=== PATIENT | male | born 1940 | race Caucasian/White ===

== ENCOUNTER 2020-05-19 14:51 | Observation (INO) | payer MEDICARE, OTHER, SELFPAY ==
[2020-05-19] VITALS (27 sets, daily range): BP systolic 112–171; BP diastolic 68–87; PULSE 75–102; RESP 12–24; TEMP 36.7–37; O2SAT 94–100
--- NOTE | ~2020-05-19 | XR_ITS ---
XR chest 1V portable DATE: 05/19/2020 17:17 INDICATION: Leukocytosis TECHNIQUE: Portable AP chest on 05/19/2020 at 1719 hours COMPARISON: None FINDINGS: Normal heart size. There is aortic calcification and tortuosity. No pulmonary infiltrate or consolidation, pleural effusion or pulmonary vascular congestion or pneumothorax. There is dextroscoliosis and degenerative spurring of the thoracic spine. Diffuse osteopenia. IMPRESSION: No active cardiopulmonary disease Aortic atherosclerosis Reviewed, dictated and finalized at location A.
--- NOTE | 2020-05-19 15:47 | ECG_ITS ---
Measurements Intervals [place] Rate: 82 P: 47 FL: 175 QRS: 52 QRSD: 102 T: 60 QT: 361 QTc: 424 Interpretive Statements SINUS RHYTHM WITH SINUS ARRHYTHMIA NORMAL ECG Electronically Signed On 05-20-2020 9:12:50 CDT by Brien Whitt D.O.
--- NOTE | 2020-05-19 15:51 | ED.PSYCH ---
HPI - Psych General Chief Complaint: Psychiatric Symptoms Stated Complaint: SI - cut wrists Time Seen by Provider: 05/19/20 15:34 Source: patient Mode of arrival: EMS Limitations: no limitations History of Present Illness HPI Narrative: This is a 79 year old male with history of depression and hypertension who presents for evaluation of depression and bilateral wrist lacerations. Patient states he has been confused and forgetful for a few years. He reports a family history of alzheimer's dementia and he states he does not want his to have take care of him. He has not had an official diagnosis of dementia. Today he states he was just having alot of thoughts about his forgetfulness and his so he cut both his wrist. He also took about 10 of his lisinopril around 3 hours ago. He denies any acute problems. He attempted suicide 7 years old but he does not take antidepressants. He states at that time he was a heavy alcohol drinker, but he denies alcohol use anymore. Related Data Home Medications Medication Instructions Recorded Confirmed cholecalciferol (vitamin D3) 25 1,000 unit PO DAILY 02/11/19 mcg (1,000 unit) capsule multivitamin 1 tablet PO DAILY 02/11/19 ICaps AREDS2 05/19/20 ascorbate calcium (vitamin C) 1,000 mg PO DAILY 05/19/20 Allergies Allergy/AdvReac Type Severity Reaction Status Date / Time No Known Allergies Allergy Verified 05/19/20 16:12 Review of Systems Review of Systems: All systems reviewed & are unremarkable except as noted in HPI and below PMFSH Past Medical History Medical History (Updated 05/19/20 @ 17:42 by Ellen Ayala MD) Cataract Dupuytren contracture Self-inflicted laceration of wrist Surgical History Surgical History H/O hand surgery H/O vasectomy Family History Family History Father Family history of Alzheimer's disease Patient's father is , Onset Age: 68 Mother Family history of Alzheimer's disease Sibling Family history of Alzheimer's disease Malignant neoplasm of prostate Family history of lymphoma Family history of malignant neoplasm of brain, Onset Age: 56 Family history of malignant neoplasm of urinary bladder, Onset Age: 76 Social History Social History (Reviewed 02/17/20 @ 13:29 by Alisson Chaney [facility]) Smoking status: Former smoker Alcohol intake: current Gender identity (if verbalized by the patient): Male Exam Const: General: no acute distress and alert Other: oriented to person, place, month, day, unable to state year Eyes: Pupils: Equal, round and reactive pupils present EOM: EOMs intact bilaterally Chest: Chest palpation & inspection: normal inspection of the chest Resp: Effort & Inspection: normal respiratory effort and no retractions Auscultation: clear to auscultation bilaterally Cardio: Rate: regular rate Rhythm: regular rhythm Heart sounds: no murmurs GI: GI Palp: Yes Soft to palpation, No Tenderness to palpation present (GI) and No Guarding due to palpation present (GI) Auscultation: normal bowel sounds Skin: General skin exam: normal color Neuro: General: patient oriented x3, moves all extremities and CN's II-XI intact bilaterally Extrem: Other: right wrist with 2 irregular laceration volar wrist, bleeding controlled; right had with 5th/4th finger flexion contractures; left wrist with 2 laceration - 3 cm and 2.5 cm volar laceration superficial bleeding controlled. Psych: Affect: Sad affect present Thought content: Yes Suicidality present and Yes Depressive thoughts present Course Reevaluation(s) Reevaluation #1: I have notified patient and his that he will be admitted to hospital for monitoring. Date: 05/19/20 Time: 17:39 Consultations Consultation #1: I discussed case with Cristina Marquez who accepts patient to hospitalist se
[2020-05-19] MEDS: TETANUS,DIPHTHERIA,AC PERTUSSIS ADULT (0.5 ML) BOOSTRIX IM (16:09)
[2020-05-19 16:18] LABS: Hematocrit 40.9 % (42.0-52.0); Hemoglobin 13.9 g/dL (14.0-18.0); Mean Corpuscular Hemoglobin 32.1 pg (26-34); Mean Corpuscular Volume 94.5 fl (80-100); Mean Platelet Volume 9.7 fl (7.4-10.4); Platelet Count Result 233 k/mm3 (150-375); Red Blood Count 4.33 M/mm3 (4.6-6.20); Red Cell Distribution Width 12.7 % (11.5-14.5); White Blood Count 16.2 K/mm3 (4.5-10.0)
[2020-05-19 16:25] LABS: Amphetamine Screen Urine Negative (Negative); Barbiturate Screen Urine Negative (Negative); Benzodiazepines Screen Urine Negative (Negative); Cannabinoid Screen Urine Negative (Negative); Cocaine Screen Urine Negative (Negative); Methadone Screen Urine Negative (Negative); Opiate Screen Urine Negative (Negative); Phencyclidine Screen Urine Negative (Negative)
[2020-05-19 16:26] LABS: Add Urine Microscopic? YES; Appearance Urine Cloudy (Clear); Bilirubin Urine Negative (Negative); Blood Urine Negative (Negative); Color Urine Yellow (Yellow); Glucose Urine UA 1+ mg/dL (Negative); Ketones Urine Trace mg/dL (Negative); Leukocyte Esterase Ur Negative LEU/UL (Negative); Mucus Urine Rare /lpf; Nitrate Urine Negative (Negative); Protein Urine 1+ mg/dL (Negative); Specific Grav Ur 1.019 (1.001-1.035); Squamous Epithelial Cell Urine Rare /hpf (Few); Urobilinogen Urine Negative mg/dL (<2.0); WBC Urine 0-3 /hpf
[2020-05-19 16:30] LABS: Ethanol < 10 mg/dL (<10)
[2020-05-19 16:31] LABS: Alanine Aminotransferase 29 U/L (4-50); Albumin Level 3.8 g/dL (3.5-5.1); Alkaline Phosphatase 58 U/L (38-126); Anion Gap 7 mmol/L (8-16); Aspartate Amino Transferase 34 U/L (17-59); Bilirubin,Total 0.5 mg/dL (0.2-1.3); Blood Urea Nitrogen 23 mg/dL (9-20); Calcium 8.5 mg/dL (8.4-10.2); Carbon Dioxide 25 mmol/L (22-30); Chloride 103 mmol/L (98-107); Estimated CRCL calculation 66 ml/min; Estimated Glomerular Filt Rate > 60; Glucose 142 mg/dL (75-110); Potassium 4.2 mmol/L (3.4-5.0); Sodium 135 mmol/L (137-145)
--- NOTE | 2020-05-19 16:34 | PC.NURSE ---
Addendum entered by Carmen Laguna RN 05/19/20 16:48: dea from poison control also states pt should be observed for approx 48 hrs Original Note: spoke with dea, pharmacist at poison control: pt can tolerate up to 240 mg/24 tablets. peak response is approx 6-8 hrs. watch for hypotension, reflex tachycardia, dizziness and lethargy. dea recommends salycilate and acetaminophen levels as well as frequent vitals and iv fluids. dea will fax treatment plan to [facility]
[2020-05-19 16:43] LABS: Band Neutrophils Percent 5 % (0-6); Lymphocytes Absolute Manual 0.48 K/mm3 (1.1-4.5); Neutrophils Absolute Manual 15.71 K/mm3 (1.3-6.7); Neutrophils Percent Manual 92 % (46-73); Total Cells Counted 100
[2020-05-19 16:44] LABS: Platelet Estimate Adequate (Adequate)
[2020-05-19 17:01] LABS: Acetaminophen < 10 ug/mL (10-30); Salicylate < 1.0 mg/dL (2-20)
[2020-05-19] MEDS: LIDOCAINE HCL 1% LOCAL INJ 20 ML VIAL (18:10)
--- NOTE | 2020-05-19 18:43 | PC.NURSE ---
updated dea with poison control
--- NOTE | 2020-05-19 18:58 | PC.NURSE ---
phone report to nurse alie. will transfer to icu after shift change
--- NOTE | 2020-05-19 19:46 | PM.IMHP ---
H&P: HPI History of Present Illness Date/Time: 05/19/20 19:46 Chief Complaint: Suicide attempt Narrative: This is a pleasant 79-year-old male with known history of chronic hypertension, hyperlipidemia, and previous suicide attempt who presented to the hospital [facility] after intentionally cutting his wrists in an attempt to take his life. The patient believes that he is slowly developing Alzheimer's dementia and is very concerned because he does not want to be a burden on his . Today when his went to the hair salon he went into the garage and took a box stamper and intentionally cut both of his wrists. About an hour later his found him in the garage and he was still loose sitting consciousness. The patient denies any other attempt to take his life although he reported to ER provider that he did also consume 10 tablets of his lisinopril 10 mg about 3 hours prior to coming to the emergency room. On my encounter with the patient he is laying comfortably in bed in no acute distress and his vital signs are stable. He denies any headache, fevers, chills, chest pain, palpitations, shortness of breath, sleepiness, abdominal pain, nausea, vomiting, dysuria, hematuria, diarrhea, rectal bleeding, or focal neurological deficits. The patient was evaluated emergency room this evening and had both of his wrists sutured by ER provider. Routine labs were obtained which were virtually unremarkable. [employer] has been consulted. Review of Systems Review of Systems: All systems reviewed & are unremarkable except as noted in HPI and below PMFSH Past Medical History Medical History (Updated 05/19/20 @ 19:56 by Tavo Bear MD) Cataract Dupuytren contracture Self-inflicted laceration of wrist Surgical History Surgical History H/O hand surgery H/O vasectomy Family History Family History Father Family history of Alzheimer's disease Patient's father is , Onset Age: 68 Mother Family history of Alzheimer's disease Sibling Family history of Alzheimer's disease Malignant neoplasm of prostate Family history of lymphoma Family history of malignant neoplasm of brain, Onset Age: 56 Family history of malignant neoplasm of urinary bladder, Onset Age: 76 Social History Social History Smoking packs per day: 3 Smoking cigarettes per day: 60.0 Smoking status: Former smoker Alcohol intake: former Substance use: never Gender identity (if verbalized by the patient): Male Spiritual care concerns: No Meds Home Medications and Allergies Home Medications Medication Instructions Recorded Confirmed Type cholecalciferol (vitamin D3) 25 1,000 unit PO DAILY 02/11/19 05/19/20 History mcg (1,000 unit) capsule multivitamin 1 tablet PO DAILY 02/11/19 05/19/20 History diclofenac sodium 75 mg 75 mg PO BID #180 tablet 01/14/20 05/19/20 Rx tablet,delayed release lisinopril 10 mg tablet 10 mg PO DAILY #90 tablet 01/14/20 05/19/20 Rx simvastatin 20 mg tablet 20 mg PO DAILY #90 tablet 01/14/20 05/19/20 Rx ICaps AREDS2 1 cap PO DAILY 05/19/20 05/19/20 History ascorbate calcium (vitamin C) 1,000 mg PO DAILY 05/19/20 05/19/20 History Allergies Allergy/AdvReac Type Severity Reaction Status Date / Time No Known Allergies Allergy Verified 05/19/20 16:12 Vital Signs Vital Signs - 24 hr 05/19/20 14:53 05/19/20 15:58 05/19/20 16:02 Temperature 36.7 C Pulse Rate 92 83 80 Respiratory Rate 21 H 17 15 Blood Pressure 171/80 H 134/76 Pulse Oximetry 99 98 98 05/19/20 16:15 05/19/20 16:16 05/19/20 16:30 Temperature Pulse Rate 80 81 78 Respiratory Rate 18 15 15 Blood Pressure 123/74 131/79 Pulse Oximetry 96 98 96 05/19/20 16:31 05/19/20 16:47 05/19/20 17:00 Temperature Pulse Rate 77 79 79 Respiratory Ra
--- NOTE | 2020-05-19 21:09 | PC.NURSE ---
This patient, Vaibhav Finney, was admitted to Intensive Care Unit-6. Patient/family oriented to hospital policies and general routines including ID bracelet, bed and alarms, visiting hours, pain management, procedures, bathroom and other care routines, personal items, smoking policy, room service/diet, and visiting hours. Information on how to activate the Rapid Response Team has been discussed. Patient/Family are encouraged to report perceived risks to care and to ask questions if they do not understand what they are told or what they should do.
[2020-05-20] VITALS (8 sets, daily range): BP systolic 101–141; BP diastolic 56–71; PULSE 69–86; RESP 10–18; TEMP 36.4–36.9; O2SAT 94–98
--- NOTE | 2020-05-20 08:49 | WPDCNINT ---
Assessment and Plan Assessment and plan (1) Suicide attempt by cutting of wrist: Code(s): X78.9XXA - Intentional self-harm by unspecified sharp object, initial encounter Status: Acute Assessment and Plan: Patient with self-inflicted wounds to bilateral wrists in attempt to commit suicide. -bilateral wrist lacerations were sutured in the ER. Patient did receive DTaP in the ER -currently denies suicidal or homicidal ideation or intent -continue suicide precaution -bedside sitter -will have care coordination and crisis management evaluate the patient (2) Suicide attempt by drug ingestion: Qualifiers: Encounter type: initial encounter Qualified Code(s): T50.902A - Poisoning by unspecified drugs, medicaments and biological substances, intentional self-harm, initial encounter Code(s): T50.902A - Poisoning by unspecified drugs, medicaments and biological substances, intentional self-harm, initial encounter Status: Acute Assessment and Plan: Patient also ingested lisinopril 10 mg x 10 pills in an attempt to commit suicide -patient's blood pressures have been stable, poison Control was notified in the ER -blood pressures have been stable patient otherwise hemodynamically stable -currently medical stable for evaluation by crisis management and care coordination (3) Essential (primary) hypertension: Code(s): I10 - Essential (primary) hypertension Status: Acute Assessment and Plan: History of essential hypertension, will hold all antihypertensives for now Additional Plan Discussed with patient updated with his condition and plan of care. I did discuss with him regarding care coordination and crisis management evaluation later today Code status: Full code Critical care time spent: 41 minutes This dictation may have been done utilizing a voice recognition system. Attempts have been made to correct errors. However, there may be uncorrected grammatical, spelling, and recognition errors present. Due to a high probability of clinically significant, life threatening deterioration, the patient required my highest level of preparedness to intervene emergently and I personally spent this critical care time directly and personally managing the patient. This critical care time included obtaining a history; examining the patient; pulse oximetry; ordering and review of studies; arranging urgent treatment with development of a management plan; evaluation of patient's response to treatment; frequent reassessment; and discussions with other providers. It was exclusive of separately billable procedures and treating other patients and teaching time. Please see Assessment and Plan section and the rest of the note for further information on patient assessment and treatment Music Therapy Teacher Consult Note Consult date: 05/20/20 Time Seen: 07:09 Reason for consult: Suicide attempt/behavior, overdose with lisinopril HPI: Vaibhav Finney is a 79 year old male with significant past medical history of chronic hypertension, hyperlipidemia suicide attempt to presented the hospital on 05/19/2020 after intentionally guarding is resistant attempt to take his life. Patient also overdosed on lisinopril 10 mg x 10 pills. According the records he was having a lot of thoughts about his forgetfulness and possible dementia. He was also worried for his and did not want to be a burden on her. When his left the house the day of admission he went to the arise, to cut a spinner box and intentionally cut both his wrists. The laceration on both wrists were superficial and was sutured in the ER. Patient's blood pressures have been stable since admission, was transferred to the ICU for further management Patient seen and examined this morning. Pleasant gentleman, states he probably made a huge mistake. He is not suicidal or homicidal at this time. Patient is otherwise able to answer questions appropriately and follows simple comm
--- NOTE | 2020-05-20 10:23 | PC.NURSE ---
Spoke with Poison Control. is closed at this time. Will continue to monitor.
--- NOTE | 2020-05-20 11:23 | PM.IMPN ---
Progress Note: A&P Assessment and Plan (1) Suicide attempt by cutting of wrist: Code(s): X78.9XXA - Intentional self-harm by unspecified sharp object, initial encounter Status: Acute Assessment and Plan: Patient has been discharged from poison Control Patient is medically stable to be evaluated by psych The patient on suicidal precautions Seated at bedside one-to-one (2) Suicide attempt by drug ingestion: Qualifiers: Encounter type: initial encounter Qualified Code(s): T50.902A - Poisoning by unspecified drugs, medicaments and biological substances, intentional self-harm, initial encounter Code(s): T50.902A - Poisoning by unspecified drugs, medicaments and biological substances, intentional self-harm, initial encounter Status: Acute Assessment and Plan: Stable TOOK 10 MG PILLS OF LISINOPRIL Blood pressure stable (3) Laceration of wrist, right: Qualifiers: Encounter type: initial encounter Qualified Code(s): S61.511A - Laceration without foreign body of right wrist, initial encounter Code(s): S61.511A - Laceration without foreign body of right wrist, initial encounter Status: Acute Assessment and Plan: Status post suture LOCAL CARE (4) Laceration of wrist, left: Qualifiers: Encounter type: initial encounter Qualified Code(s): S61.512A - Laceration without foreign body of left wrist, initial encounter Code(s): S61.512A - Laceration without foreign body of left wrist, initial encounter Status: Acute Assessment and Plan: A status post sutures Local care (5) Chronic kidney disease, stage 3 (moderate): Qualifiers: Chronic kidney disease stage 3 subtype: unspecified whether 3a or 3b Qualified Code(s): N18.30 - Chronic kidney disease, stage 3 unspecified Code(s): N18.3 - Chronic kidney disease, stage 3 (moderate) Status: Chronic Assessment and Plan: BUN AND CREATININE AT PATIENT'S BASELINE (6) Essential (primary) hypertension: Code(s): I10 - Essential (primary) hypertension Status: Acute Assessment and Plan: Is stable would resume meds as needed (7) Major depressive disorder, single episode, unspecified: Qualifiers: Active/Remission status: remission status unspecified Qualified Code(s): F32.9 - Major depressive disorder, single episode, unspecified Code(s): F32.9 - Major depressive disorder, single episode, unspecified Status: Acute Assessment and Plan: Awaiting evaluation by psych Supportive care Resume home meds Subjective Date/time seen: 05/20/20 11:23 I feel OK. Review of Systems Review of Systems: Narrative: Patient is here after he took 10 mg Lisinopril tabs and cut both of his wrists in an attempt to take his own life, expresses concerns about having Dementia like his father did and what his mother went thru by having to take care of him does not want his to go thru that as well, has been thinking about this lately. Constitutional: Comments: No rigors, no chills, no fevers. Cardiovascular: Comments: No chest pain ,no PND no orthopnea, no leg swelling Respiratory: Comments: No cough or sputum production no shortness of breath Gastrointestinal: Comments: No nausea, no vomiting, no diarrhea, no abdominal pain. Musculoskeletal: Comments: No muscular weakness, no muscle pain, no joint pain Integumentary/Breasts: Comments: No rashes Neurologic: Comments: No sensorimotor deficit Exam Narrative: Exam Narrative: Healthy appearing ,comfortable, in no acute distress, well developed. Well nourished. Oriented x3 Const: Nutritional Appearance: well nourished HENMT: Head: normal to inspection, normocephalic and atraumatic Ears: hearing grossly normal bilaterally General nose exam: Normal external nose present Face and sinus: normal facial exam Eyes: General: appearance normal, both eyes and all related struct
[2020-05-20 17:14] LABS: SARS-CoV-2 RNA PCR Negative
--- NOTE | 2020-05-24 16:02 | PM.DS ---
DS: Admitting Diagnosis Admitting Diagnosis Admitting Diagnosis: - suicidal attempt -bilateral wrist laceration -OD on lisinopril -depression -hypertension DS: Discharge Diagnosis Discharge Diagnosis (1) Suicidal ideation: Code(s): R45.851 - Suicidal ideations Status: Acute Assessment and Plan: transferred to outside psych facility patient denies any current thoughts of harming self (2) Suicide attempt by cutting of wrist: Code(s): X78.9XXA - Intentional self-harm by unspecified sharp object, initial encounter Status: Acute Assessment and Plan: local care (3) Suicide attempt by drug ingestion: Qualifiers: Encounter type: initial encounter Qualified Code(s): T50.902A - Poisoning by unspecified drugs, medicaments and biological substances, intentional self-harm, initial encounter Code(s): T50.902A - Poisoning by unspecified drugs, medicaments and biological substances, intentional self-harm, initial encounter Status: Acute Assessment and Plan: monitored overnight (4) Laceration of wrist, right: Qualifiers: Encounter type: initial encounter Qualified Code(s): S61.511A - Laceration without foreign body of right wrist, initial encounter Code(s): S61.511A - Laceration without foreign body of right wrist, initial encounter Status: Acute Assessment and Plan: local care (5) Laceration of wrist, left: Qualifiers: Encounter type: initial encounter Qualified Code(s): S61.512A - Laceration without foreign body of left wrist, initial encounter Code(s): S61.512A - Laceration without foreign body of left wrist, initial encounter Status: Acute Assessment and Plan: local care (6) Benign essential hypertension: Code(s): I10 - Essential (primary) hypertension Status: Chronic Assessment and Plan: stable follow-up in a patient is a (7) Chronic kidney disease, stage 3 (moderate): Qualifiers: Chronic kidney disease stage 3 subtype: unspecified whether 3a or 3b Qualified Code(s): N18.30 - Chronic kidney disease, stage 3 unspecified Code(s): N18.3 - Chronic kidney disease, stage 3 (moderate) Status: Chronic Assessment and Plan: follow-up in outpatient setting continue to monitor (8) Essential (primary) hypertension: Code(s): I10 - Essential (primary) hypertension Status: Acute Assessment and Plan: well controlled continue home meds (9) Major depressive disorder, single episode, unspecified: Qualifiers: Active/Remission status: remission status unspecified Qualified Code(s): F32.9 - Major depressive disorder, single episode, unspecified Code(s): F32.9 - Major depressive disorder, single episode, unspecified Status: Acute Assessment and Plan: admitted to outside psych facility DS: Summary Hospital Course Reason for hospitalization: Suicidal attempt. Hospital Course: this is a 79-year-old male with past medical history significant for depression hypertension on but impaired glucose tolerance patient was brought to the hospital after he attempted suicide by cutting his wrists and taken 10 pills of his own lisinopril, he was placed on suicidal precautions, stated at bedside one-to-one monitoring, he was cleared by poison control in the morning and he was evaluated by crisis intervention and he was transferred to outside psych facility he remained in a stable medical condition on his recent wounds were sutured in the emergency room Status at Discharge Cognitive/behavioral status at discharge: AOX3 Functional status at discharge: independent ambulation Overall status at discharge: patient is progressing back to baseline Time Spent with Patient Time attestation: Total time spent providing and/or coordinating discharge services: Exam Const: General: comfortable, no acute distress, wel
== END 2020-05-20 19:28 ==
LOC: ANHED 17:42 → ANHICU 05-20 12:05
PROVIDERS: Admitting Provider Family Medicine; Emergency Provider General Practice; PCP Family Medicine; Visit Provider Internal Medicine
DX: T46.4X2A Poisoning by angiotensin-converting-enzyme inhibitors, intentional self-harm, initial encounter (principal); S61.512A Laceration without foreign body of left wrist, initial encounter; S61.511A Laceration without foreign body of right wrist, initial encounter; X78.9XXA Intentional self-harm by unspecified sharp object, initial encounter; R45.851 Suicidal ideations; I12.9 Hypertensive chronic kidney disease with stage 1 through stage 4 chronic kidney disease, or unspecified chronic kidney disease; N18.30 Chronic kidney disease, stage 3 unspecified; E78.5 Hyperlipidemia, unspecified; F32.9 Major depressive disorder, single episode, unspecified; Z87.891 Personal history of nicotine dependence; Z20.822 Contact with and (suspected) exposure to COVID-19; Z79.899 Other long term (current) drug therapy
CPT/HCPCS: 12002; 36415; 71045; 80053; 80307; 81001; 84443; 85025; 90471; 90715; 93005; 99285; C9803; G0378; U0003; U0005

== ENCOUNTER 2020-06-10 10:44 | Outpatient (CLI) | payer MEDICARE, OTHER, SELFPAY ==
--- NOTE | ~2020-06-10 | US_ITS ---
EXAMINATION: US carotid duplex BI DATE: 06/10/2020 11:17 INDICATION: Other amnesia. TECHNIQUE: Grayscale, color Doppler, and pulsed Doppler images of the cervical carotid arteries were obtained. The degree of vessel stenosis is placed in one of the following categories: normal, <50%, 5 0-69%, >=70% but less than near-occlusion, near-occlusion, or total occlusion. Note that percent sten osis relative to normal distal artery lumen diameter is indirectly measured from velocity measurement s as described by Rashaad, et al. Radiology 2003; 229:340-346. COMPARISON: None. FINDINGS: RIGHT: The right common carotid artery (CCA) peak systolic velocity (PSV) is 132 cm/s. The right internal ca rotid artery (ICA) PSV is 81 cm/s. The right ICA end-diastolic velocity (EDV) is 8 cm/s. The right IC A/CCA PSV ratio is 0.6. Grayscale and color Doppler images yield an estimate of <50% diameter reducti on from plaque in the ICA. There is antegrade flow in the right vertebral artery. LEFT: The left CCA PSV is 135 cm/s. The left ICA PSV is 85 cm/s. The left ICA EDV is 18 cm/s. The left ICA/ CCA PSV ratio is 0.6. Grayscale and color Doppler images yield an estimate of <50% diameter reduction from plaque in the ICA. There is antegrade flow in the left vertebral artery. IMPRESSION: 1. <50% stenosis in the right internal carotid artery. 2. <50% stenosis in the left internal carotid artery. Reviewed, dictated and finalized at location A.
== END 2020-06-10 10:45 | disposition home or self-care (01) ==
PROVIDERS: PCP Family Medicine; Visit Provider Family Medicine
DX: I65.23 Occlusion and stenosis of bilateral carotid arteries (principal); R09.89 Other specified symptoms and signs involving the circulatory and respiratory systems; R41.3 Other amnesia
CPT/HCPCS: 93880

== ENCOUNTER 2020-06-12 13:27 | Outpatient (CLI) | payer MEDICARE, OTHER, SELFPAY ==
--- NOTE | ~2020-06-12 | MR_ITS ---
EXAMINATION: MR brain/brain stem wo/w con DATE: 06/12/2020 14:58 INDICATION: Amnesia. TECHNIQUE: Magnetic resonance imaging (MRI) of the brain and brainstem was performed without and with 14 mL MultiHance intravenous contrast. Sequences included sagittal and axial T1-weighted FSE, axial diffusion-weighted FS EPI, axial T2*-weighted GRE, axial T2-weighted FLAIR Propeller, and axial T2-we ighted Propeller. Postcontrast sequences included axial and coronal T1-weighted FSE. Apparent diffusi on coefficient (ADC) maps were created. COMPARISON: Head CT 03/27/2017 FINDINGS: There are scattered areas of nonspecific increased T2-weighted signal intensity in the cere bral white matter, which is within normal limits for the patient's age. There is no intracranial hemo rrhage, acute infarction, or abnormal intracranial mass lesion. The ventricles are normal in size. Th ere is mild mucosal thickening in the ethmoid sinuses. There are likely changes of ocular lens replac ement surgeries. The mastoid air cells are normal. IMPRESSION: 1. Normal aging brain. Reviewed, dictated and finalized at location A. IMPRESSION: 1. Normal aging brain.
== END 2020-06-12 13:28 | disposition home or self-care (01) ==
PROVIDERS: PCP Family Medicine; Visit Provider Family Medicine
DX: R41.3 Other amnesia (principal); F32.9 Major depressive disorder, single episode, unspecified
CPT/HCPCS: 70553; A9577

== ENCOUNTER 2020-06-15 08:43 | Outpatient (CLI) | payer MEDICARE, OTHER, SELFPAY ==
--- NOTE | 2020-06-15 11:14 | WPDNEUROLOGY ---
Neurology EEG Report General Information Date of Study: 06/15/20 TEST EEG DIAGNOSIS AMNESIA CONDITION OF RECORDING Awake drowsy and sleep EEG NUMBER [id number] CLINICAL HISTORY patient reported he is experiencing issues with memory. Started with long-term and now having some issues with short-term memory as well along with some confusion. EEG DESCRIPTION basic resting occipital frequency consists of large amount of well-organized low to medium voltage 8 to 10 hertz per second alpha admixed with low-voltage 15 to 18 hertz per second beta. During drowsiness low-voltage beta activity seen diffusely admixed with waxing and waning intermittent 5 to 7 hertz per second theta activity. Bilateral symmetrical sleep activity seen during sleep. Hyperventilation not done. Photic stimulation produced normal drive. Non paroxysmal. Nonlateralizing. Nonfocal. IMPRESSION Normal record
== END 2020-06-15 08:44 | disposition home or self-care (01) ==
PROVIDERS: PCP Family Medicine; Visit Provider Family Medicine
DX: F32.9 Major depressive disorder, single episode, unspecified (principal)
CPT/HCPCS: 95816